=== PATIENT | female | born 1945 | race Caucasian/White ===

== ENCOUNTER 2022-04-21 20:28 | Inpatient (IN) | payer MEDICARE ==
[~2022-04-21] VITALS: Ht 162.6 cm; Wt 61.7 kg
[2022-04-21 21:05] LABS: BASOPHILS % 0.2 % (0.0-1.0); HEMATOCRIT 37.5 % (34.2-44.1); HEMOGLOBIN 12.4 g/dL (12.0-16.0); LYMPHOCYTES # (AUTO) 0.5 (1.0-3.2); LYMPHOCYTES % 4.6 % (18.0-39.1); MEAN CORPUSCULAR HEMOGLOBIN 29.6 pg (28-32); MEAN CORPUSCULAR HGB CONC 33.1 g/dL (31-35); MEAN CORPUSCULAR VOLUME 89.5 fL (81-99); MONOCYTES # (AUTO) 0.2 (0.2-0.8); MONOCYTES % 1.5 % (4.4-11.3); NEUTROPHILS # (AUTO) 9.3 (2.1-6.9); NEUTROPHILS % 93.2 % (38.7-80.0); PLATELET COUNT 225 x10e3/uL (140-360); RED BLOOD COUNT 4.19 x10e6/uL (3.6-5.1); RED CELL DISTRIBUTION WIDTH 12.9 % (11.7-14.4)
[2022-04-21] MEDS ORDERED: LACTATED RINGER'S 1,000 ML INJ ONE ×2 (21:15→21:30)
[2022-04-21 21:22] LABS: ALBUMIN 3.4 g/dL (3.5-5.0); ANION GAP 19.4 mmol/L (8-16); CALCIUM 9.3 mg/dL (8.4-10.2); CREATININE, SERUM 1.01 mg/dL (0.57-1.11); POTASSIUM 3.4 mmol/L (3.5-5.1)
[2022-04-21 21:30] LABS: INR 1.19; PROTHROMBIN TIME 16.1 seconds (11.9-14.5)
[2022-04-21 22:32] LABS: CLARITY,URINE SL CLOUDY (CLEAR); COLOR,URINE AMBER (YELLOW); KETONES,URINE NEGATIVE (NEGATIVE); LEUKOCYTE ESTERASE ,URINE MODERATE (NEGATIVE); NITRITE,URINE NEGATIVE (NEGATIVE); PROTEIN,URINE DIPSTICK 2+ (NEGATIVE); URINE UROBILINOGEN >=8 mg/dL (0.2 - 1)
[2022-04-21 22:44] LABS: BACTERIA,URINE MANY /HPF; EPITHELIAL CELLS,URINE FEW /LPF; WBC,URINE (MAN) 21-50 /HPF (0-5)
[2022-04-21] MEDS ORDERED: ACETAMINOPHEN 1000 MG/100 ML IV STA (23:15)
[2022-04-21] MEDS ORDERED: ACETAMINOPHEN 1000 MG/100 ML 100 ML IV ONE (23:25)
[2022-04-22] VITALS (16 sets, daily range): BP systolic 95–149; BP diastolic 49–70
[2022-04-22] MEDS ORDERED: PIPERACILLIN/TAZOBACTAM 4.5 GM in SODIUM CHLORIDE 0.9% 100 ML IV SCH ×2
[2022-04-22] MEDS ORDERED: IOPAMIDOL 370 MG/ML 100 ML INFUS..BTL INJ ONE (00:28)
[2022-04-22] MEDS: SODIUM CHLORIDE 0.9% 1000ML 1,000 ML IV SCH ×2 (00:30→10:31)
[2022-04-22 05:03] LABS: BASOPHILS % 0.1 % (0.0-1.0); EOSINOPHILS % 0.1 % (0.0-6.0); HEMATOCRIT 32.7 % (34.2-44.1); HEMOGLOBIN 10.9 g/dL (12.0-16.0); LYMPHOCYTES # (AUTO) 0.5 (1.0-3.2); LYMPHOCYTES % 6.5 % (18.0-39.1); MEAN CORPUSCULAR HEMOGLOBIN 29.5 pg (28-32); MEAN CORPUSCULAR HGB CONC 33.3 g/dL (31-35); MEAN CORPUSCULAR VOLUME 88.6 fL (81-99); MONOCYTES # (AUTO) 0.4 (0.2-0.8); MONOCYTES % 4.6 % (4.4-11.3); NEUTROPHILS # (AUTO) 7.4 (2.1-6.9); NEUTROPHILS % 88.1 % (38.7-80.0); PLATELET COUNT 161 x10e3/uL (140-360); RED BLOOD COUNT 3.69 x10e6/uL (3.6-5.1); RED CELL DISTRIBUTION WIDTH 12.9 % (11.7-14.4)
[2022-04-22 05:31] LABS: ALBUMIN 2.5 g/dL (3.5-5.0); ALBUMIN/GLOBULIN RATIO 0.8 (0.8-2.0); ANION GAP 14.1 mmol/L (8-16); CALCIUM 8.5 mg/dL (8.4-10.2); CHOL/HDL RATIO 2.6 (3.0-3.6); CREATININE, SERUM 0.77 mg/dL (0.57-1.11); POTASSIUM 3.1 mmol/L (3.5-5.1)
[2022-04-22 05:50] LABS: CREATINE KINASE MB 3.4 ng/mL (0-5.0)
[2022-04-22] MEDS ORDERED: HYDRALAZINE HCL 20 MG/ML VIAL IV PRN (09:45)
[2022-04-22] MEDS ORDERED: ACETAMINOPHEN 325 MG TAB PO PRN (09:45)
[2022-04-22] MEDS ORDERED: SODIUM CHLORIDE 0.9% 250ML 250 ML ONE ×2 (12:35→15:43)
[2022-04-22] MEDS ORDERED: IOPAMIDOL 300MG/ML 100 ML INFUS..BTL IV ONE (12:35)
[2022-04-22] MEDS ORDERED: LIDOCAINE HCL 1% LOCAL INJ 20 ML VIAL ONE (12:35)
[2022-04-22] MEDS ORDERED: FENTANYL CITRATE/PF 100MCG/2 ML INJ ONE (13:58)
[2022-04-22] MEDS ORDERED: MIDAZOLAM HCL 2 MG/2 ML VIAL ONE (13:58)
[2022-04-22] MEDS ORDERED: CEFTRIAXONE 1 GM VIAL ONE (14:07)
[2022-04-22] MEDS ORDERED: ACETAMINOPHEN 1000 MG/100 ML IV STA (15:22)
[2022-04-22] MEDS ORDERED: Vancomycin IV 1 GM in SODIUM CHLORIDE 0.9% 250ML 250 ML IV ONE (15:30)
[2022-04-22] MEDS ORDERED: KETOROLAC TROMETHAMINE 30 MG/ML VIAL IV PRN (15:30)
[2022-04-22] MEDS ORDERED: KETOROLAC TROMETHAMINE 30 MG/ML VIAL ONE (15:38)
[2022-04-22] MEDS ORDERED: Vancomycin IV 1 GM VIAL ONE (15:43)
[2022-04-22 15:55] LABS: ALANINE AMINOTRANSFERASE 99 IU/L (0-55); ALBUMIN/GLOBULIN RATIO 0.7 (0.8-2.0); ALKALINE PHOSPHATASE 109 IU/L (40-150); ANION GAP 23.7 mmol/L (8-16); BLOOD UREA NITROGEN 11 mg/dL (7-26); BUN/CREATININE RATIO 15 (6-25); CALCIUM 9.4 mg/dL (8.4-10.2); CARBON DIOXIDE 15 mmol/L (22-29); CHLORIDE 109 mmol/L (98-107); CREATINE KINASE 708 IU/L (29-168); CREATININE, SERUM 0.71 mg/dL (0.57-1.11); GLUCOSE 72 mg/dL (74-118); POTASSIUM 3.7 mmol/L (3.5-5.1); SODIUM 144 mmol/L (136-145)
[2022-04-22] MEDS ORDERED: HYDRALAZINE HCL 20 MG/ML VIAL IV ONE (16:00)
[2022-04-22] MEDS ORDERED: SODIUM CHLORIDE 0.9% 1000ML 1,000 ML IV SCH (16:00)
[2022-04-22] MEDS: FAMOTIDINE 20 MG TAB PO SCH (16:30)
[2022-04-22] MEDS ORDERED: MEROPENEM 1 GM in SODIUM CHLORIDE 0.9% 100 ML IV SCH (18:00)
[2022-04-22 18:27] LABS: BASOPHILS % 0.1 % (0.0-1.0); HEMATOCRIT 29.2 % (34.2-44.1); HEMOGLOBIN 9.8 g/dL (12.0-16.0); LYMPHOCYTES # (AUTO) 0.2 (1.0-3.2); LYMPHOCYTES % 2.2 % (18.0-39.1); MEAN CORPUSCULAR HEMOGLOBIN 29.7 pg (28-32); MEAN CORPUSCULAR HGB CONC 33.6 g/dL (31-35); MEAN CORPUSCULAR VOLUME 88.5 fL (81-99); MONOCYTES # (AUTO) 0.3 (0.2-0.8); MONOCYTES % 4.1 % (4.4-11.3); NEUTROPHILS # (AUTO) 6.8 (2.1-6.9); NEUTROPHILS % 93.1 % (38.7-80.0); PLATELET COUNT 143 x10e3/uL (140-360)
[2022-04-22 18:53] LABS: INR 1.36; PROTHROMBIN TIME 17.9 seconds (11.9-14.5)
[2022-04-22 20:44] LABS: CREATINE KINASE MB 7.3 ng/mL (0-5.0)
[2022-04-22] MEDS: LACTATED RINGER'S 1,000 ML INJ ONE ×2 (21:23→21:40)
[2022-04-22] MEDS ORDERED: LACTATED RINGER'S 1,000 ML ONE (21:41)
[2022-04-23] VITALS (29 sets, daily range): BP systolic 91–161; BP diastolic 55–119
[2022-04-23 05:11] LABS: BASOPHILS % 0.4 % (0.0-1.0); EOSINOPHILS # (AUTO) 0.1 (0.0-0.4); EOSINOPHILS % 0.7 % (0.0-6.0); HEMOGLOBIN 10.4 g/dL (12.0-16.0); LYMPHOCYTES # (AUTO) 0.4 (1.0-3.2); LYMPHOCYTES % 6.1 % (18.0-39.1); MEAN CORPUSCULAR HEMOGLOBIN 29.5 pg (28-32); MEAN CORPUSCULAR HGB CONC 33.5 g/dL (31-35); MEAN CORPUSCULAR VOLUME 87.8 fL (81-99); MONOCYTES # (AUTO) 0.4 (0.2-0.8); MONOCYTES % 5.1 % (4.4-11.3); PLATELET COUNT 151 x10e3/uL (140-360); RED BLOOD COUNT 3.53 x10e6/uL (3.6-5.1); RED CELL DISTRIBUTION WIDTH 13.1 % (11.7-14.4)
[2022-04-23] MEDS: MEROPENEM 1 GM in SODIUM CHLORIDE 0.9% 100 ML IV SCH ×3 (05:18→22:00)
[2022-04-23 05:33] LABS: ANION GAP 14.9 mmol/L (8-16); CALCIUM 7.9 mg/dL (8.4-10.2); CREATININE, SERUM 0.65 mg/dL (0.57-1.11)
[2022-04-23 05:42] LABS: POTASSIUM 2.9 mmol/L (3.5-5.1)
[2022-04-23] MEDS: POTASSIUM CHLORIDE 20MEQ/100ML 100 ML IV SCH ×2 (05:55→09:34)
[2022-04-23] MEDS ORDERED: POTASSIUM CHLORIDE 20MEQ/100ML 200 ML ONE (06:00)
[2022-04-23] MEDS: FAMOTIDINE 20 MG TAB PO SCH ×2 (09:35→16:44)
[2022-04-23 09:38] LABS: BAND NEUTROPHILS % (MANUAL) 4 %; LYMPHOCYTES % (MANUAL) 1 % (19-48); MONOCYTES % (MANUAL) 4 % (3.4-9.0); NEUTROPHILS % (MANUAL) 91 % (40-74); PLATELET ESTIMATE ADEQUATE; PLATELET MORPHOLOGY COMMENT NORMAL; RBC MORPHOLOGY COMMENT NORMAL
[2022-04-23] MEDS ORDERED: POTASSIUM CHLORIDE 20 MEQ TAB CR PO ONE (15:00)
[2022-04-23 19:03] LABS: ANION GAP 14.5 mmol/L (8-16); CREATININE, SERUM 0.59 mg/dL (0.57-1.11)
[2022-04-23 19:08] LABS: POTASSIUM 3.5 mmol/L (3.5-5.1)
[2022-04-23] MEDS: ATORVASTATIN 40 MG TAB PO SCH (22:00)
[2022-04-23] MEDS ORDERED: SODIUM CHLORIDE 0.9% 250ML 250 ML ONE (23:04)
[2022-04-24] VITALS (12 sets, daily range): BP systolic 145–166; BP diastolic 75–98
[2022-04-24] MEDS: MEROPENEM 1 GM in SODIUM CHLORIDE 0.9% 100 ML IV SCH ×3 (05:35→20:50)
[2022-04-24] MEDS: FAMOTIDINE 20 MG TAB PO SCH ×2 (07:21→17:00)
[2022-04-24] MEDS: ASPIRIN 81 MG ENTERIC COATED PO SCH (08:35)
[2022-04-24] MEDS: METOPROLOL SUCCINATE 25 MG TAB XL PO SCH (08:35)
[2022-04-24] MEDS ORDERED: TRICOR145 MG PO (08:57)
[2022-04-24] MEDS ORDERED: BYSTOLIC10 MG PO (08:57)
[2022-04-24] MEDS ORDERED: PROLIA60 MG/1 ML (08:58)
[2022-04-24] MEDS ORDERED: VITAMIN D3 MA125 MCG ×2 (08:59→09:04)
[2022-04-24] MEDS ORDERED: ASPIRIN81 MG PO (09:03)
[2022-04-24] MEDS ORDERED: CULTURELLE (09:03)
[2022-04-24] MEDS ORDERED: POTASSIUM CHLORIDE 20 MEQ TAB CR PO ONE (09:30)
[2022-04-24 10:17] LABS: BASOPHILS % 0.3 % (0.0-1.0); EOSINOPHILS # (AUTO) 0.1 (0.0-0.4); EOSINOPHILS % 1.5 % (0.0-6.0); HEMATOCRIT 32.1 % (34.2-44.1); LYMPHOCYTES # (AUTO) 0.7 (1.0-3.2); LYMPHOCYTES % 7.5 % (18.0-39.1); MEAN CORPUSCULAR HEMOGLOBIN 29.5 pg (28-32); MEAN CORPUSCULAR HGB CONC 34.3 g/dL (31-35); MEAN CORPUSCULAR VOLUME 86.1 fL (81-99); MONOCYTES # (AUTO) 0.6 (0.2-0.8); MONOCYTES % 6.9 % (4.4-11.3); NEUTROPHILS # (AUTO) 7.2 (2.1-6.9); NEUTROPHILS % 83.1 % (38.7-80.0); PLATELET COUNT 184 x10e3/uL (140-360); RED BLOOD COUNT 3.73 x10e6/uL (3.6-5.1)
[2022-04-24 10:34] LABS: ALBUMIN 2.1 g/dL (3.5-5.0); ALBUMIN/GLOBULIN RATIO 0.8 (0.8-2.0); ANION GAP 15.2 mmol/L (8-16); CALCIUM 7.9 mg/dL (8.4-10.2); CREATININE, SERUM 0.55 mg/dL (0.57-1.11); POTASSIUM 3.2 mmol/L (3.5-5.1)
[2022-04-24] MEDS ORDERED: SODIUM CHLORIDE 0.9% 100 ML ONE (13:16)
[2022-04-24] MEDS: ATORVASTATIN 40 MG TAB PO SCH (20:50)
[2022-04-25] VITALS (7 sets, daily range): BP systolic 146–163; BP diastolic 70–94
[2022-04-25] MEDS: MEROPENEM 1 GM in SODIUM CHLORIDE 0.9% 100 ML IV SCH ×3 (05:35→21:10)
[2022-04-25] MEDS: FAMOTIDINE 20 MG TAB PO SCH ×2 (08:15→17:42)
[2022-04-25] MEDS: ASPIRIN 81 MG ENTERIC COATED PO SCH (08:38)
[2022-04-25] MEDS: METOPROLOL SUCCINATE 25 MG TAB XL PO SCH (08:39)
[2022-04-25] MEDS ORDERED: HYDRALAZINE HCL 20 MG/ML VIAL IV PRN (09:45)
[2022-04-25] MEDS ORDERED: FUROSEMIDE INJ 10 MG/ML 4 ML VIAL IV ONE (11:00)
[2022-04-25] MEDS ORDERED: POTASSIUM CHLORIDE 10MEQ EA PO ONE (11:00)
[2022-04-25] MEDS: ATORVASTATIN 40 MG TAB PO SCH (21:10)
[2022-04-26] VITALS (8 sets, daily range): BP systolic 140–158; BP diastolic 80–88
[2022-04-26] MEDS: MEROPENEM 1 GM in SODIUM CHLORIDE 0.9% 100 ML IV SCH ×3 (06:15→21:22)
[2022-04-26] MEDS ORDERED: SODIUM CHLORIDE 0.9% 250ML 250 ML ONE (06:22)
[2022-04-26 07:13] LABS: ANION GAP 12.1 mmol/L (8-16); CALCIUM 8.1 mg/dL (8.4-10.2); CREATININE, SERUM 0.51 mg/dL (0.57-1.11); POTASSIUM 3.1 mmol/L (3.5-5.1)
[2022-04-26 07:15] LABS: MAGNESIUM 1.6 MG/DL (1.3-2.1); PHOSPHORUS 1.6 MG/DL (2.3-4.7)
[2022-04-26] MEDS: METOPROLOL SUCCINATE 50 MG TAB XL PO SCH (09:00)
[2022-04-26] MEDS: FAMOTIDINE 20 MG TAB PO SCH ×2 (09:44→18:23)
[2022-04-26] MEDS: ASPIRIN 81 MG ENTERIC COATED PO SCH (09:44)
[2022-04-26] MEDS ORDERED: MAGNESIUM SULFATE 2GM/50ML IV ONE (12:00)
[2022-04-26] MEDS ORDERED: POTASSIUM CHLORIDE 20 MEQ TAB CR PO ONE (12:15)
[2022-04-26] MEDS ORDERED: MAGNESIUM SULFATE 2GM/50ML 50 ML IV ONE (12:30)
[2022-04-26] MEDS ORDERED: POTASSIUM PHOSPHATE 20 MM in SODIUM CHLORIDE 0.9% 250ML 250 ML IV SCH (15:00)
[2022-04-26] MEDS: ATORVASTATIN 40 MG TAB PO SCH (21:22)
[2022-04-27] VITALS: BP 163/92
[2022-04-27 04:00] VITALS: BP 154/86
[2022-04-27] MEDS: MEROPENEM 1 GM in SODIUM CHLORIDE 0.9% 100 ML IV SCH ×2 (05:22→13:00)
[2022-04-27 07:09] LABS: BASOPHILS # (AUTO) 0.1 (0.0-0.1); BASOPHILS % 0.7 % (0.0-1.0); EOSINOPHILS # (AUTO) 0.4 (0.0-0.4); EOSINOPHILS % 4.2 % (0.0-6.0); HEMOGLOBIN 10.8 g/dL (12.0-16.0); LYMPHOCYTES # (AUTO) 1.4 (1.0-3.2); LYMPHOCYTES % 15.8 % (18.0-39.1); MEAN CORPUSCULAR HEMOGLOBIN 28.9 pg (28-32); MEAN CORPUSCULAR HGB CONC 33.8 g/dL (31-35); MEAN CORPUSCULAR VOLUME 85.6 fL (81-99); MONOCYTES # (AUTO) 0.7 (0.2-0.8); MONOCYTES % 8.6 % (4.4-11.3); NEUTROPHILS # (AUTO) 5.7 (2.1-6.9); NEUTROPHILS % 66.6 % (38.7-80.0); PLATELET COUNT 334 x10e3/uL (140-360); RED BLOOD COUNT 3.74 x10e6/uL (3.6-5.1); RED CELL DISTRIBUTION WIDTH 13.2 % (11.7-14.4)
[2022-04-27 07:29] LABS: MAGNESIUM 1.9 MG/DL (1.3-2.1)
[2022-04-27] MEDS: FAMOTIDINE 20 MG TAB PO SCH (07:30)
[2022-04-27 07:36] VITALS: BP 162/88
[2022-04-27 07:38] LABS: ANION GAP 14.4 mmol/L (8-16); CALCIUM 7.9 mg/dL (8.4-10.2); CREATININE, SERUM 0.47 mg/dL (0.57-1.11); POTASSIUM 3.4 mmol/L (3.5-5.1)
[2022-04-27] MEDS: METOPROLOL SUCCINATE 50 MG TAB XL PO SCH (09:00)
[2022-04-27] MEDS: ASPIRIN 81 MG ENTERIC COATED PO SCH (09:00)
[2022-04-27 09:56] VITALS: BP 162/88
[2022-04-27 11:17] VITALS: BP 157/82
[2022-04-27] MEDS ORDERED: AMLODIPINE BESYLATE 5 MG TAB PO SCH (11:30)
[2022-04-27] MEDS ORDERED: CEFTIN PO (14:05)
== END 2022-04-27 15:19 | disposition home or self-care (01) | DRG 871 ==
LOC: ER 20:40 → ERHOLD 23:33 → MED/SURG2 04-22 02:46 → ICU 04-22 15:46 → MED/SURG2 04-24 12:44
PROVIDERS: ADMIT Internal Medicine; ATTEND Internal Medicine
PROC: 0T9030Z Drainage of Right Kidney with Drainage Device, Percutaneous Approach (ICD-10-PCS; principal; 2022-04-22)
PROC: 3E03329 Introduction of Other Anti-infective into Peripheral Vein, Percutaneous Approach (ICD-10-PCS; 2022-04-22)
DX: A41.9 Sepsis, unspecified organism (principal); R65.21 Severe sepsis with septic shock; I50.33 Acute on chronic diastolic (congestive) heart failure; I21.A1 Myocardial infarction type 2; N13.6 Pyonephrosis; E87.2 Acidosis; I11.0 Hypertensive heart disease with heart failure; E78.5 Hyperlipidemia, unspecified; N39.46 Mixed incontinence; N28.1 Cyst of kidney, acquired; D64.9 Anemia, unspecified; E87.6 Hypokalemia; R31.29 Other microscopic hematuria; Z90.12 Acquired absence of left breast and nipple; Z92.3 Personal history of irradiation; Z85.3 Personal history of malignant neoplasm of breast; Z82.49 Family history of ischemic heart disease and other diseases of the circulatory system; Z84.89 Family history of other specified conditions; Z20.822 Contact with and (suspected) exposure to COVID-19
CPT/HCPCS: 36415; 36569; 50432; 51700; 70450; 71045; 71046; 74177; 74470; 76942; 80048; 80053; 80061; 81001; 82550; 82553; 82948; 83605; 83735; 83880; 83970; 84100; 84484; 84550; 85025; 85610; 87040; 87071; 87086; 87186; 87205; 93005; 93306; 93880; 94799; 96361; 99152; 99153; 99251; 99285; J0360; J0696; J1885; J1940; J2001; J2185; J2250; J2543; J3010; J3370; J3475; J3480; J7030; J7050; J7121; Q9967

== ENCOUNTER → 2022-05-23 | Day surgery (SDC) | payer MEDICARE ==
[2022-05-21 10:52] LABS: BASOPHILS # (AUTO) 0.1 (0.0-0.1); BASOPHILS % 0.6 % (0.0-1.0); EOSINOPHILS # (AUTO) 0.1 (0.0-0.4); EOSINOPHILS % 1.7 % (0.0-6.0); HEMATOCRIT 37.9 % (34.2-44.1); HEMOGLOBIN 12.1 g/dL (12.0-16.0); LYMPHOCYTES # (AUTO) 1.5 (1.0-3.2); LYMPHOCYTES % 18.6 % (18.0-39.1); MEAN CORPUSCULAR HEMOGLOBIN 28.5 pg (28-32); MEAN CORPUSCULAR HGB CONC 31.9 g/dL (31-35); MEAN CORPUSCULAR VOLUME 89.4 fL (81-99); MONOCYTES # (AUTO) 0.5 (0.2-0.8); MONOCYTES % 5.9 % (4.4-11.3); NEUTROPHILS # (AUTO) 5.7 (2.1-6.9); NEUTROPHILS % 72.7 % (38.7-80.0); PLATELET COUNT 287 x10e3/uL (140-360); RED BLOOD COUNT 4.24 x10e6/uL (3.6-5.1); RED CELL DISTRIBUTION WIDTH 13.2 % (11.7-14.4)
[2022-05-21 11:15] LABS: ANION GAP 14.7 mmol/L (8-16); CALCIUM 9.3 mg/dL (8.4-10.2); CREATININE, SERUM 0.68 mg/dL (0.57-1.11); POTASSIUM 3.7 mmol/L (3.5-5.1)
[~2022-05-23] MED LIST: ASPIRIN81 MG PO; B&O 60MG R/S 60 MG SUPP PR ONE; BYSTOLIC10 MG PO; CEFTIN PO; CEFTRIAXONE 1 GM VIAL ONE; CULTURELLE; DEXAMETHASONE SOD PHOS INJ 4 MG/ML SDV ONE; FENTANYL CITRATE/PF 100MCG/2 ML INJ ONE; GENTAMICIN 80MG/NS 100 ML 200 ML IV ONE; IOPAMIDOL 610MG/1ML 300 MG/ML VIAL IV ONE; LIDOCAINE HCL 2% LOCAL INJ 5 ML SDV VIAL INJ ONE; ONDANSETRON HCL INJ 2MG/ML 2ML 2 MG/ML VIAL ONE; POVIDONE IODINE 0.05% 0.05 % ML PO ONE; PROLIA60 MG/1 ML; PROPOFOL IV EMULSION 10 MG/ML 20 ML VIAL ONE; SEVOFLURANE INHAL SOLN 250 ML PEN BTL ONE; SODIUM CHLORIDE 0.9% 1000ML 1,000 ML ONE; TRICOR145 MG PO; VITAMIN D3 MA125 MCG
[2022-05-23 11:10] VITALS: BP 146/81
== END | disposition home or self-care (01) ==
LOC: OR 07:04
PROVIDERS: ATTEND Urology
DX: N13.2 Hydronephrosis with renal and ureteral calculous obstruction (principal); N39.0 Urinary tract infection, site not specified; N95.2 Postmenopausal atrophic vaginitis; Z43.6 Encounter for attention to other artificial openings of urinary tract; N32.89 Other specified disorders of bladder; I10 Essential (primary) hypertension; E78.5 Hyperlipidemia, unspecified; Z01.812 Encounter for preprocedural laboratory examination; Z01.818 Encounter for other preprocedural examination; Z20.822 Contact with and (suspected) exposure to COVID-19; Z79.82 Long term (current) use of aspirin; Z79.4 Long term (current) use of insulin; Z79.899 Other long term (current) drug therapy; Z85.3 Personal history of malignant neoplasm of breast
CPT/HCPCS: 0223U; 36415; 50590; 74018; 80048; 84550; 85025; 87086; C1758; C1769; C2617; J0696; J1100; J1580; J2001; J2405; J3010; J7030

== ENCOUNTER 2022-07-25 16:19 | Inpatient (IN) | payer MEDICARE, OTHER ==
[~2022-07-25] VITALS: Ht 162.6 cm; Wt 54.6 kg
[~2022-07-25 16:19] MED LIST changes: -B&O 60MG R/S 60 MG SUPP PR ONE; -CEFTRIAXONE 1 GM VIAL ONE; -DEXAMETHASONE SOD PHOS INJ 4 MG/ML SDV ONE; -FENTANYL CITRATE/PF 100MCG/2 ML INJ ONE; -GENTAMICIN 80MG/NS 100 ML 200 ML IV ONE; -IOPAMIDOL 610MG/1ML 300 MG/ML VIAL IV ONE; -LIDOCAINE HCL 2% LOCAL INJ 5 ML SDV VIAL INJ ONE; -ONDANSETRON HCL INJ 2MG/ML 2ML 2 MG/ML VIAL ONE; -POVIDONE IODINE 0.05% 0.05 % ML PO ONE; -PROPOFOL IV EMULSION 10 MG/ML 20 ML VIAL ONE; -SEVOFLURANE INHAL SOLN 250 ML PEN BTL ONE; -SODIUM CHLORIDE 0.9% 1000ML 1,000 ML ONE
[2022-07-25 17:16] LABS: BASOPHILS % 0.2 % (0.0-1.0); EOSINOPHILS % 0.3 % (0.0-6.0); HEMATOCRIT 34.1 % (34.2-44.1); HEMOGLOBIN 11.4 g/dL (12.0-16.0); LYMPHOCYTES # (AUTO) 0.9 (1.0-3.2); LYMPHOCYTES % 5.8 % (18.0-39.1); MEAN CORPUSCULAR HEMOGLOBIN 28.9 pg (28-32); MEAN CORPUSCULAR HGB CONC 33.4 g/dL (31-35); MEAN CORPUSCULAR VOLUME 86.3 fL (81-99); MONOCYTES # (AUTO) 0.9 (0.2-0.8); MONOCYTES % 5.6 % (4.4-11.3); NEUTROPHILS # (AUTO) 13.8 (2.1-6.9); NEUTROPHILS % 87.5 % (38.7-80.0); PLATELET COUNT 258 x10e3/uL (140-360); RED BLOOD COUNT 3.95 x10e6/uL (3.6-5.1); RED CELL DISTRIBUTION WIDTH 13.2 % (11.7-14.4)
[2022-07-25 17:30] LABS: ALANINE AMINOTRANSFERASE 15 IU/L (0-55); ALBUMIN 3.5 g/dL (3.5-5.0); ALBUMIN/GLOBULIN RATIO 1.3 (0.8-2.0); ALKALINE PHOSPHATASE 47 IU/L (40-150); ANION GAP 16.3 mmol/L (8-16); BLOOD UREA NITROGEN 9 mg/dL (7-26); BUN/CREATININE RATIO 13 (6-25); CALCIUM 8.8 mg/dL (8.4-10.2); CARBON DIOXIDE 22 mmol/L (22-29); CHLORIDE 99 mmol/L (98-107); CREATINE KINASE 24 IU/L (29-168); CREATININE, SERUM 0.72 mg/dL (0.57-1.11); GLUCOSE 114 mg/dL (74-118); POTASSIUM 3.3 mmol/L (3.5-5.1); SODIUM 134 mmol/L (136-145)
[2022-07-25] MEDS ORDERED: Morphine 4mg INJECTION 4 MG/ML INJ IV PRN (18:45)
[2022-07-25] MEDS ORDERED: ONDANSETRON HCL INJ 2MG/ML 2ML 2 MG/ML VIAL IV PRN (18:45)
[2022-07-25 18:50] LABS: AMPHETAMINES SCREEN,URINE NEGATIVE (NEGATIVE); BENZODIAZEPINES SCREEN,URINE NEGATIVE (NEGATIVE); CLARITY,URINE CLOUDY (CLEAR); COLOR,URINE YELLOW (YELLOW); KETONES,URINE NEGATIVE (NEGATIVE); LEUKOCYTE ESTERASE ,URINE LARGE (NEGATIVE); NITRITE,URINE NEGATIVE (NEGATIVE); PHENCYCLIDINE SCREEN,URINE NEGATIVE (NEGATIVE); PROTEIN,URINE DIPSTICK 1+ (NEGATIVE)
[2022-07-25 18:51] LABS: URINE UROBILINOGEN 0.2 mg/dL (0.2 - 1)
[2022-07-25 19:01] LABS: BACTERIA,URINE MANY /HPF; EPITHELIAL CELLS,URINE FEW /LPF; WBC,URINE (MAN) >50 /HPF (0-5)
[2022-07-25 21:30] VITALS: BP 138/66
[2022-07-25 22:00] VITALS: BP 138/66
[2022-07-26] VITALS (8 sets, daily range): BP systolic 111–154; BP diastolic 52–100
[2022-07-26 00:47] LABS: CREATINE KINASE MB 0.4 ng/mL (0-5.0)
[2022-07-26] MEDS: ACETAMINOPHEN 325 MG TAB PO PRN ×3 (04:54→20:51)
[2022-07-26 06:11] LABS: BASOPHILS # (AUTO) 0.1 (0.0-0.1); BASOPHILS % 0.3 % (0.0-1.0); EOSINOPHILS % 0.1 % (0.0-6.0); HEMATOCRIT 39.1 % (34.2-44.1); HEMOGLOBIN 13.2 g/dL (12.0-16.0); LYMPHOCYTES # (AUTO) 1.1 (1.0-3.2); LYMPHOCYTES % 7.3 % (18.0-39.1); MEAN CORPUSCULAR HEMOGLOBIN 28.8 pg (28-32); MEAN CORPUSCULAR HGB CONC 33.8 g/dL (31-35); MEAN CORPUSCULAR VOLUME 85.2 fL (81-99); MONOCYTES # (AUTO) 1.2 (0.2-0.8); MONOCYTES % 7.9 % (4.4-11.3); NEUTROPHILS # (AUTO) 12.8 (2.1-6.9); NEUTROPHILS % 83.6 % (38.7-80.0); PLATELET COUNT 252 x10e3/uL (140-360); RED BLOOD COUNT 4.59 x10e6/uL (3.6-5.1); RED CELL DISTRIBUTION WIDTH 13.5 % (11.7-14.4)
[2022-07-26 06:46] LABS: ALBUMIN 3.5 g/dL (3.5-5.0); ALBUMIN/GLOBULIN RATIO 1.1 (0.8-2.0); ANION GAP 22.5 mmol/L (8-16); CALCIUM 9.3 mg/dL (8.4-10.2); CREATININE, SERUM 0.67 mg/dL (0.57-1.11); POTASSIUM 3.5 mmol/L (3.5-5.1)
[2022-07-26 07:32] LABS: CREATINE KINASE MB 0.5 ng/mL (0-5.0)
[2022-07-26] MEDS: NEBIVOLOL 10 MG TAB PO SCH (09:00)
[2022-07-26] MEDS: FENOFIBRATE 145 MG TAB PO SCH (09:36)
[2022-07-26 15:21] LABS: CREATINE KINASE MB 0.3 ng/mL (0-5.0)
[2022-07-27 01:25] VITALS: BP 130/70
[2022-07-27] MEDS: ACETAMINOPHEN 325 MG TAB PO PRN (01:25)
[2022-07-27 05:27] VITALS: BP 104/54
[2022-07-27 05:35] LABS: BASOPHILS % 0.3 % (0.0-1.0); EOSINOPHILS % 0.1 % (0.0-6.0); LYMPHOCYTES % 7.7 % (18.0-39.1); MEAN CORPUSCULAR HEMOGLOBIN 28.5 pg (28-32); MEAN CORPUSCULAR HGB CONC 34.4 g/dL (31-35); MEAN CORPUSCULAR VOLUME 82.9 fL (81-99); MONOCYTES # (AUTO) 1.1 (0.2-0.8); MONOCYTES % 8.1 % (4.4-11.3); NEUTROPHILS # (AUTO) 10.8 (2.1-6.9); PLATELET COUNT 217 x10e3/uL (140-360); RED BLOOD COUNT 3.86 x10e6/uL (3.6-5.1); RED CELL DISTRIBUTION WIDTH 13.3 % (11.7-14.4)
[2022-07-27 05:59] LABS: CALCIUM 8.7 mg/dL (8.4-10.2); CREATININE, SERUM 0.61 mg/dL (0.57-1.11)
[2022-07-27 07:49] VITALS: BP 132/61
[2022-07-27] MEDS: FENOFIBRATE 145 MG TAB PO SCH (08:59)
[2022-07-27] MEDS: NEBIVOLOL 10 MG TAB PO SCH (09:00)
[2022-07-27 09:16] VITALS: BP 132/61
[2022-07-27] MEDS ORDERED: CEPHALEXIN500 MG PO (09:41)
[2022-07-27] MEDS ORDERED: ONDANSETRON HCL 4 MG ORAL DISINTEGRATING TAB PO PRN (09:45)
[2022-07-27] MEDS ORDERED: POTASSIUM CHLORIDE 20 MEQ TAB CR PO ONE (10:10)
== END 2022-07-27 10:32 | disposition home or self-care (01) | DRG 698 ==
LOC: ER 16:32 → ERHOLD 18:31 → MED/SURG2 22:00
PROVIDERS: ADMIT Internal Medicine; ATTEND Internal Medicine
DX: T83.593A Infection and inflammatory reaction due to other urinary stents, initial encounter (principal); A41.9 Sepsis, unspecified organism; U07.1 COVID-19; N39.0 Urinary tract infection, site not specified; E87.1 Hypo-osmolality and hyponatremia; N13.30 Unspecified hydronephrosis; R55 Syncope and collapse; I10 Essential (primary) hypertension; Z87.442 Personal history of urinary calculi; E78.5 Hyperlipidemia, unspecified; Z85.3 Personal history of malignant neoplasm of breast; Z90.12 Acquired absence of left breast and nipple; S80.211A Abrasion, right knee, initial encounter; W18.39XA Other fall on same level, initial encounter; Y93.01 Activity, walking, marching and hiking; Y92.511 Restaurant or cafe as the place of occurrence of the external cause; E87.6 Hypokalemia; N95.2 Postmenopausal atrophic vaginitis; Z96.0 Presence of urogenital implants; Z82.49 Family history of ischemic heart disease and other diseases of the circulatory system; B96.20 Unspecified Escherichia coli [E. coli] as the cause of diseases classified elsewhere
CPT/HCPCS: 36415; 70450; 71045; 72125; 80048; 80053; 80307; 81001; 82550; 82553; 83880; 84484; 85025; 87086; 87186; 93005; 93306; 94799; 99285; J0696

== ENCOUNTER → 2022-08-08 | Day surgery (SDC) | payer MEDICARE ==
[2022-08-06 10:55] LABS: BASOPHILS % 0.4 % (0.0-1.0); EOSINOPHILS # (AUTO) 0.1 (0.0-0.4); EOSINOPHILS % 1.5 % (0.0-6.0); HEMATOCRIT 38.4 % (34.2-44.1); HEMOGLOBIN 12.2 g/dL (12.0-16.0); LYMPHOCYTES # (AUTO) 1.4 (1.0-3.2); LYMPHOCYTES % 17.2 % (18.0-39.1); MEAN CORPUSCULAR HEMOGLOBIN 28.4 pg (28-32); MEAN CORPUSCULAR HGB CONC 31.8 g/dL (31-35); MEAN CORPUSCULAR VOLUME 89.3 fL (81-99); MONOCYTES # (AUTO) 0.5 (0.2-0.8); MONOCYTES % 5.9 % (4.4-11.3); NEUTROPHILS % 74.1 % (38.7-80.0); PLATELET COUNT 455 x10e3/uL (140-360); RED CELL DISTRIBUTION WIDTH 13.5 % (11.7-14.4)
[2022-08-06 11:17] LABS: ANION GAP 13.9 mmol/L (8-16); CALCIUM 10.2 mg/dL (8.4-10.2); CREATININE, SERUM 0.68 mg/dL (0.57-1.11); POTASSIUM 3.9 mmol/L (3.5-5.1)
[~2022-08-08] MED LIST changes: +B&O 60MG R/S 60 MG SUPP PR ONE; +CEFTRIAXONE 1 GM VIAL ONE; +CEPHALEXIN500 MG PO; +DEXAMETHASONE SOD PHOS INJ 4 MG/ML SDV ONE; +EPHEDRINE SULFATE INJ 50 MG/ML VIAL ONE; +GENTAMICIN 80MG/NS 100 ML 200 ML IV ONE; +IOPAMIDOL 300MG/ML 50ML INFUS..BTL IV ONE; +LIDOCAINE HCL 2% LOCAL INJ 5 ML SDV VIAL INJ ONE; +ONDANSETRON HCL INJ 2MG/ML 2ML 2 MG/ML VIAL ONE; +POVIDONE IODINE 0.05% 0.05 % ML PO ONE; +PROPOFOL IV EMULSION 10 MG/ML 20 ML VIAL ONE; +SEVOFLURANE INHAL SOLN 250 ML PEN BTL ONE
[2022-08-08 12:25] VITALS: BP 141/82
== END | disposition home or self-care (01) ==
LOC: OR 09:47
PROVIDERS: ATTEND Urology
DX: N20.1 Calculus of ureter (principal); Z46.6 Encounter for fitting and adjustment of urinary device; N95.2 Postmenopausal atrophic vaginitis; N81.10 Cystocele, unspecified; N81.6 Rectocele; N32.89 Other specified disorders of bladder; N28.89 Other specified disorders of kidney and ureter; I10 Essential (primary) hypertension; R55 Syncope and collapse; Z01.812 Encounter for preprocedural laboratory examination; Z01.818 Encounter for other preprocedural examination; Z79.82 Long term (current) use of aspirin; Z79.899 Other long term (current) drug therapy
CPT/HCPCS: 36415; 52352; 74018; 74420; 80048; 84550; 85025; 87086; 88300; J0696; J1100; J1580; J2001; J2405; J2704; Q9967

== ENCOUNTER → 2023-03-04 | Outpatient (CLI) | payer MEDICARE ==
[~2023-03-04] MED LIST changes: -B&O 60MG R/S 60 MG SUPP PR ONE; -CEFTRIAXONE 1 GM VIAL ONE; -DEXAMETHASONE SOD PHOS INJ 4 MG/ML SDV ONE; -EPHEDRINE SULFATE INJ 50 MG/ML VIAL ONE; -GENTAMICIN 80MG/NS 100 ML 200 ML IV ONE; -IOPAMIDOL 300MG/ML 50ML INFUS..BTL IV ONE; -LIDOCAINE HCL 2% LOCAL INJ 5 ML SDV VIAL INJ ONE; -ONDANSETRON HCL INJ 2MG/ML 2ML 2 MG/ML VIAL ONE; -POVIDONE IODINE 0.05% 0.05 % ML PO ONE; -PROPOFOL IV EMULSION 10 MG/ML 20 ML VIAL ONE; -SEVOFLURANE INHAL SOLN 250 ML PEN BTL ONE
== END ==
LOC: RAD 09:53
PROVIDERS: ATTEND Urology
DX: N20.0 Calculus of kidney (principal)
CPT/HCPCS: 74018